=== PATIENT | male | born 1970 | race African-American/Black ===

== ENCOUNTER 2017-12-31 13:05 | Outpatient (CLI) | payer BC | END 2017-12-31 13:06 | disposition home or self-care (01) | LOC: DTY/OP 13:05 | PROVIDERS: ATTEND Family Medicine | DX: E78.00 Pure hypercholesterolemia, unspecified (principal) | CPT/HCPCS: 97802 ==

== ENCOUNTER 2018-09-16 07:16 | Day surgery (SDC) | payer BC ==
[2018-09-15 11:32] VITALS: BMI 26.9
--- NOTE | 2018-09-16 08:02 | HP ---
HISTORY OF PRESENT ILLNESS: This is a 48-year-old male with chronic acid reflux. The patient has taken PPI. He still has symptoms of acid reflux consisting of abdominal bloating, indigestion, heartburn and occasional regurgitation. No dysphagia or odynophagia. The patient comes in for EGD because of chronic dyspepsia with acid reflux. He will also have a colonoscopy for colon cancer screening. ALLERGIES: NONE. SOCIAL HISTORY: The patient does not smoke or drink alcohol. MEDICAL ILLNESS: 1. Chronic acid reflux. 2. Chronic seasonal allergies. PHYSICAL EXAMINATION: GENERAL: Appears comfortable. VITAL SIGNS: Pulse is 70, blood pressure 130/80. HEENT: Conjunctivae clear. CARDIOVASCULAR: First and second heart sounds normal. LUNGS: Clear to auscultation. ABDOMEN: Soft to touch. No organomegaly. No tenderness. No masses. ADMITTING DIAGNOSES: 1. Chronic dyspepsia-chronic acid reflux. 2. Colon cancer screening. PLAN: EGD and colonoscopy. Job ID: [id number]
--- NOTE | 2018-09-16 20:51 | OP ---
DATE OF PROCEDURE: 09/16/2018 PROCEDURE PERFORMED: Colonoscopy. PREOPERATIVE DIAGNOSIS: A 48-year-old male, undergoing colonoscopy for colon cancer screening. POSTOPERATIVE DIAGNOSIS: Normal colonoscopy except for hemorrhoids. DESCRIPTION OF PROCEDURE: The patient was placed on his left lateral position and was given sedation by Anesthesia Department. A rectal exam was done before the scope was advanced into the rectum. No lesions felt on rectal exam. A Pentax video colonoscope was introduced into the rectum and advanced all the way to cecum. The prep is good. The mucosa appears normal throughout the colon with normal vascular pattern. In the appendiceal orifice, ileocecal valve, cecum, no pathology seen. Withdrawal of scope from the cecum to ascending colon, hepatic flexure, no pathology seen. The transverse colon, splenic flexure, descending colon, sigmoid colon, no pathology. Retroflexion of scope in the rectum, hemorrhoids. Job ID: [id number]
--- NOTE | 2018-09-19 13:02 | OP ---
DATE OF PROCEDURE: 09/16/2018 OPERATIVE PROCEDURE: Esophagogastroduodenoscopy with biopsy. PREOPERATIVE DIAGNOSES: 1. Recurrent dyspepsia. 2. Chronic heartburn. 3. Undergoing esophagogastroduodenoscopy. POSTOPERATIVE DIAGNOSES: 1. Grade 2 esophagitis in the distal esophagus. 2. Mild antral gastritis. DESCRIPTION OF PROCEDURE: The patient was placed on his left lateral position and was given sedation by Anesthesia Department. A Pentax video gastroscope under direct vision passed down the oropharynx to the GE junction into the stomach and subsequently into the descending duodenum. The esophageal mucosa appears normal over the upper two-thirds. Over the distal esophagus, the patient had mucosal edema and friability. Biopsy obtained of the area. Retroflexion failed to show any pathology in the fundus or cardia. In the gastric body, no pathology. In the gastric antrum, . The duodenal bulb, descending duodenum no pathology. Biopsies obtained from the gastric antrum and gastric body. The stomach was decompressed and the scope removed. DISCHARGE PLANNING: This is a 48-year-old male, referred to me by Dr. Paddy Peres for chronic acid reflux and also colon cancer. The EGD showed grade 2 esophagitis and antral gastritis. The colonoscopy showed . DISCHARGE RECOMMENDATIONS: 1. The patient advised to call me if . 2. He was advised to call me back if he develops any abdominal pain, hematochezia, or melena. 3. To come back to clinic in 2 weeks. Job ID: [id number]
== END 2018-09-16 10:00 | disposition home or self-care (01) ==
LOC: SDC 07:16
PROVIDERS: ATTEND Internal Medicine Gastroenterology
PROC: 0DJD8ZZ Inspection of Lower Intestinal Tract, Via Natural or Artificial Opening Endoscopic (ICD-10-PCS; principal; 2018-09-16)
PROC: 0DB68ZX Excision of Stomach, Via Natural or Artificial Opening Endoscopic, Diagnostic (ICD-10-PCS; principal; 2018-09-16)
PROC: 0DB58ZX Excision of Esophagus, Via Natural or Artificial Opening Endoscopic, Diagnostic (ICD-10-PCS; principal; 2018-09-16)
DX: K21.0 Gastro-esophageal reflux disease with esophagitis (principal); Z12.11 Encounter for screening for malignant neoplasm of colon; K29.70 Gastritis, unspecified, without bleeding; J30.2 Other seasonal allergic rhinitis
CPT/HCPCS: 88305; 88312; 88313

== ENCOUNTER 2019-12-22 07:37 | Outpatient (CLI) | payer BC ==
--- NOTE | 2019-12-22 09:03 | ULT ---
ULTRASOUND ABDOMEN COMPLETE: DATE: 12/22/2019. HISTORY: A 49-year-old male with abdominal pain R10.9, abdominal pain, unspecified abdominal location. FINDINGS: Liver: Normal size and echogenicity. Gallbladder: Adequate degree of distention. No wall thickness. Several tiny, apparently immobile hy perechoic foci, at least some of them representing tiny polyps. Tiny gallstones are not completely e xcluded. These are on the order of 2-3 mm in size each. There is at least 1 ring-down artifact ev ing from the anterior gallbladder wall, consistent with adenomyomatosis. No pericholecystic fluid. Negative sonographic Matthew's sign. Common duct: 4 mm. Spleen: No splenomegaly. Pancreas: Tail and head obscured by shadowing from overlying bowel gas. Kidneys: No hydronephrosis. There is a 1.5 cm cyst at the right renal lower pole parenchyma. Abdominal aorta: Atherosclerosis. No aneurysm. Inferior vena cava: Patent where visualized. IMPRESSION: Several tiny gallbladder polyps and adenomyomatosis of the gallbladder. Uncertain whether or not the re are a few tiny gallstones. No evidence of acute cholecystitis. CRISTHIAN Vela POS: WALT
== END 2019-12-22 07:38 | disposition home or self-care (01) ==
LOC: SCSULT 07:37
PROVIDERS: ATTEND Family Medicine
DX: R10.9 Unspecified abdominal pain (principal); K82.4 Cholesterolosis of gallbladder; K82.8 Other specified diseases of gallbladder
CPT/HCPCS: 93975